=== PATIENT | female | born 1960 | race Caucasian/White ===

== ENCOUNTER 2019-04-12 09:48 | Day surgery (SDC) | payer OTHER ==
[2019-04-12] MEDS ORDERED: FENTAnyl 50 MCG/ML VIAL (12:09)
[2019-04-12] MEDS ORDERED: MIDAZOLAM 1 MG/ML 2 ML INJ ×2 (12:09)
== END 2019-04-12 15:19 | disposition home or self-care (01) ==
LOC: GIL 09:48
DX: Z12.11 Encounter for screening for malignant neoplasm of colon (principal); K57.30 Diverticulosis of large intestine without perforation or abscess without bleeding; E11.9 Type 2 diabetes mellitus without complications
CPT/HCPCS: 45378; 82962